=== PATIENT | male | born 1950 | race Caucasian/White ===

== ENCOUNTER 2022-11-11 10:27 | Outpatient (CLI) | payer MEDICARE, SELFPAY ==
[2022-11-11 17:20] LABS: Albumin* 3.9 g/dL (3.3-5.0); Chloride* 104 mmol/L (96-114); Sodium* 137 mmol/L (135-149)
[2022-11-11 17:21] LABS: Potassium* 4.6 mmol/L (3.6-5.1)
[2022-11-11 17:23] LABS: Alanine Aminotransferase* 39 U/L (4-50); Alkaline Phosphatase* 95 U/L (40-150); Aspartate Amino Transferase* 50 U/L (12-35); Blood Urea Nitrogen* 7 mg/dL (7-30); Calcium* 9.7 mg/dL (8.4-10.6); Carbon Dioxide* 26 mmol/L (20-32); Creatinine* 0.9 mg/dL (0.5-1.5); Estimated Glomerular Filt Rate 91 ml/min; Glucose* 96 mg/dL (60-115); Total Protein* 7.8 g/dL (6.0-8.3)
[2022-11-11 17:39] LABS: Bilirubin Total* 0.5 mg/dL (0.1-1.5)
[2022-11-11 18:12] LABS: Vitamin B12* 401 pg/mL (243-894)
== END 2022-11-11 10:28 | disposition home or self-care (01) ==
PROVIDERS: PCP Family Medicine; Visit Provider Family Medicine
DX: Z00.00 Encounter for general adult medical examination without abnormal findings (principal); I10 Essential (primary) hypertension; Z13.21 Encounter for screening for nutritional disorder; Z13.29 Encounter for screening for other suspected endocrine disorder; Z13.0 Encounter for screening for diseases of the blood and blood-forming organs and certain disorders involving the immune mechanism
CPT/HCPCS: 80053; 82607; 84443

== ENCOUNTER 2023-05-21 09:27 | Outpatient (CLI) | payer MEDICARE, SELFPAY | END 2023-05-21 09:28 | disposition home or self-care (01) | LOC: LONREF 09:29 | PROVIDERS: PCP Family Medicine; Visit Provider Family Medicine | DX: I10 Essential (primary) hypertension (principal); R60.9 Edema, unspecified | CPT/HCPCS: 80048 ==

== ENCOUNTER 2023-06-20 07:42 | Outpatient (CLI) | payer MEDICARE, SELFPAY | END 2023-06-20 07:43 | disposition home or self-care (01) | PROVIDERS: PCP Family Medicine; Visit Provider Family Medicine | DX: R60.9 Edema, unspecified (principal) | CPT/HCPCS: 93306 ==

== ENCOUNTER 2023-07-02 07:45 | Outpatient (CLI) | payer MEDICARE, SELFPAY ==
--- NOTE | 2023-07-02 08:00 | CRLHL7_ITS ---
For Patients: As a result of the Century Cures Act, medical imaging exams and procedure reports are released immediately into your electronic medical record. You may view this report before your referring provider. If you have questions, please contact your health care provider. INDICATION: Lung cancer screening. History of smoking. High risk patient with greater than 50 pack-year smoking history. TECHNIQUE: Low-dose lung cancer screening non-contrast CT chest. Dose reduction techniques were used. COMPARISON: 06/17/2018 FINDINGS: NODULES: None. LUNGS AND PLEURA: Emphysema. Biapical pleural parenchymal scarring. Focal fibrotic change in the posterior segment of the right upper lobe. Mild fibrosis within the posterior aspect of the right lower lobe with slight bronchiectasis. Mild scarring left lower lobe. No pleural effusion. MEDIASTINUM: No enlarged lymph nodes. Atherosclerotic changes. CORONARY ARTERY CALCIFICATION: Present. LIMITED UPPER ABDOMEN: Simple renal cysts. MUSCULOSKELETAL: No fracture. Degenerative changes. IMPRESSION: Negative for lung cancer screening purposes. LUNG-RADS CATEGORY: 2: Benign. RADIOLOGIST RECOMMENDATION: Continue annual screening with low-dose CT chest in 12 months. Please note that all CT scans at this facility use dose modulation, iterative reconstruction, and/or weight-based dosing when appropriate to reduce radiation dose to as low as reasonably achievable. Dictated by Neeraj Almanzar MD @ 07/02/2023 11:02:58 AM (Electronically Signed)
== END 2023-07-02 07:46 | disposition home or self-care (01) ==
PROVIDERS: PCP Family Medicine; Visit Provider Family Medicine
DX: Z12.2 Encounter for screening for malignant neoplasm of respiratory organs (principal); J44.9 Chronic obstructive pulmonary disease, unspecified; F17.211 Nicotine dependence, cigarettes, in remission; F17.220 Nicotine dependence, chewing tobacco, uncomplicated; R05.3 Chronic cough
CPT/HCPCS: 71271

== ENCOUNTER 2023-07-21 13:46 | Emergency (ER) | payer MEDICARE, SELFPAY ==
--- NOTE | 2023-07-21 14:14 | ED.NURSE ---
Patient left before being triaged. Security verified this information.
== END 2023-07-21 14:35 | disposition left against medical advice (07) ==
PROVIDERS: Emergency Provider Emergency Medicine Emergency Medical Services; PCP Family Medicine
DX: Z53.21 Procedure and treatment not carried out due to patient leaving prior to being seen by health care provider (principal)

== ENCOUNTER 2023-09-12 10:10 | Outpatient (CLI) | payer MEDICARE, SELFPAY | END 2023-09-12 10:11 | disposition home or self-care (01) | LOC: LONREF 10:11 | PROVIDERS: PCP Family Medicine; Visit Provider Family Medicine | DX: I10 Essential (primary) hypertension (principal); F10.10 Alcohol abuse, uncomplicated; L29.9 Pruritus, unspecified | CPT/HCPCS: 80053 ==

== ENCOUNTER 2023-12-08 10:49 | Emergency (ER) | payer MEDICARE, SELFPAY ==
[2023-12-08 11:19] VITALS: BP 119/77; PULSE 70; RESP 16; TEMP 36.5; O2SAT 97; BMI 29.4
--- NOTE | 2023-12-08 14:05 | ED.NURSE ---
Station Agent in waiting room asking for pt to come back to room. Pt not in waiting room. Waiting room bathroom checked, but no one in bathroom. Pt left without being seen and without signing a refusal of services.
--- NOTE | 2023-12-08 14:18 | W.ED.CHARTNO ---
ED Chart Note Chart Note Details Date: 12/08/23 Details: Patient left before being seen.
== END 2023-12-08 14:22 | disposition home or self-care (01) ==
LOC: ED 14:24
PROVIDERS: Emergency Provider Family Medicine; PCP Family Medicine
DX: Z53.21 Procedure and treatment not carried out due to patient leaving prior to being seen by health care provider (principal)

== ENCOUNTER 2025-01-03 20:57 | Outpatient (CLI) | payer MEDICARE, SELFPAY | END 2025-01-03 20:58 | disposition home or self-care (01) | LOC: AMB 01-04 15:51 | PROVIDERS: PCP Family Medicine; Visit Provider Family Medicine | DX: F10.129 Alcohol abuse with intoxication, unspecified (principal); R53.1 Weakness | CPT/HCPCS: A0998 ==

== ENCOUNTER 2025-06-23 12:49 | Emergency (ER) | payer MEDICARE, SELFPAY ==
--- OUTSIDE RECORDS SUMMARY | 2025-06-23 12:53 | XMS_ITS | Clinical Summary ---
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/01/2010 Unspecified examination 01/01/2010 Overview (01/01/2010): Physical: 11/2008 Cholesterol: 173 done 11/30/2008 LDL: 110 done 11/30/2008 Colonoscopy: 02/22/2008 Hypotestosteronemia 01/01/2010 Colon polyp 02/02/2008 Immunizations Immunization Administration Dates Next Due Influenza A (H1N1), Inactivated 08/04/2009 Pneumococcal Poly,23-Valent (Pneumovax) 09/16/20 05 Td (Age >=7 Years) 03/03/2001 Varicella Vaccine 03/03/2001 Family History Medical History Relation Name Comments Stroke Father Other Mother lung cancer Stroke Paternal Grandfather Other Paternal Grandmother cancer Relation Name Status Comments Father Mother (Age 73) Paternal Grandfather (Age 73) Paternal Grandmother (Age 85) Social History Tobacco Use Types Packs/Day Years Used Date Smoking Tobacco: Every Day Cigarettes Smokeless Tobacco: Never Alcohol Use Standard Drinks/Week Comments Yes 4.2 (1 standard drin k = 0.6 oz pure alcohol) significan history alcohol use but has cut down significantly per H&P 05/05/10/08 pack every day Sex and Gender Information Value Date Recorded Sex Assigned at Not on file 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 Gender Identity Not on file Sexual Orientation Not on file Obstetrics History Last Filed Vital Signs Vital Sign Reading Time Taken Comments Blood Pressure 141/89 02/02/2014 1:04 PM CDT Pulse 81 02/02/2014 1:04 PM CDT Temperature 36.4 C (97.5 F) 06/11/2012 10:30 AM CDT Respiratory Rate 16 06/11/2012 1:00 PM CDT Oxygen Saturation 96% 06/11/2012 1:00 PM CDT Inhaled Oxygen Concentration - - Weight 74.8 kg (165 lb) 06/09/2012 9:37 PM CDT Height 177.8 cm (5' 10) 06/09/2012 9:37 PM CDT Body Mass Index 23.68 06/09/2012 9:37 PM CDT Plan of Treatment Health Maintenance Due Date Last Done Comments Depression screening for age 12+ 1962 BMI (ht and wt on same day) for age 18+ 1968 Hepatitis C screening for ag e 18-79 1968 Zoster (shingles) series for age 50+ (1 of 2) 2000 Pneumococcal series for age 50+ (2 of 2 - PCV) 09/16/2006 09/16/2005 Tetanus booster 03/03/2011 03/03/2001 Lipids for age 45-75 11/20/2013 11/20/2008 Colonoscopy through age 75 02/21/2018 02/22/2008 COVID-19 vaccine series (3 - 2023- season) 2024 01/26/2021, 01/05/2021 RSV vaccine for adults or (1 - 1-dose 75+ series) 2025 Influenza Vaccine (#1) 2025 Hepatitis B series for 19+ Aged Out N o longer eligible based on patient's age to complete this topic Medical Devices Implanted Type Area [employer] Assistant Device Identifier Shelf Expiration Date Model / Serial / Lot Log [id number] - Janeen [id number] Lens Iol - 1 - Lens Iol 20.5 Wf [id number] Implanted:Qty: 1 on 05/14/2012 by Fabio Artis MD at [facility] [employer] [id number] # / [id number] / Log [id number] - Janeen [id number] Lens Iol - 1 - Lens Iol 20.5 Wf [id number]. 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
[2025-06-23 13:46] VITALS: BP 135/82; PULSE 87; RESP 18; TEMP 36.9; O2SAT 97; BMI 27.1
== END 2025-06-23 14:36 | disposition left against medical advice (07) ==
LOC: ED 14:35
PROVIDERS: Emergency Provider Family Medicine; PCP Family Medicine
DX: Z53.21 Procedure and treatment not carried out due to patient leaving prior to being seen by health care provider (principal)
CPT/HCPCS: 99281

== ENCOUNTER 2025-06-24 14:45 | Outpatient (CLI) | payer MEDICARE, SELFPAY | END 2025-06-24 14:46 | disposition home or self-care (01) | LOC: LKVREF 14:50 | PROVIDERS: PCP Family Medicine; Visit Provider Physician Assistant | DX: R06.02 Shortness of breath (principal) | CPT/HCPCS: 83880 ==

== ENCOUNTER 2025-06-29 14:45 | Outpatient (CLI) | payer MEDICARE, SELFPAY ==
--- NOTE | 2025-06-29 15:00 | CRLHL7_ITS ---
For Patients: As a result of the Century Cures Act, medical imaging exams and procedure reports are released immediately into your electronic medical record. You may view this report before your referring provider. If you have questions, please contact your health care provider. INDICATION: Leg pain and swelling. TECHNIQUE: Ultrasound venous duplex bilateral lower extremity. Compression venous exam was performed using arnold-scale, color Doppler, and spectral Doppler analysis. COMPARISON: None. FINDINGS: Deep veins: The bilateral common femoral, superficial femoral, deep femoral, popliteal, and posterior tibial veins are fully compressible and patent. Superficial veins: Greater saphenous vein is fully compressible. No popliteal cyst. IMPRESSION: : Unremarkable ultrasound of the bilateral lower extremity veins. No sign of venous thrombus. Dictated by Steven Springer MD @ 06/29/2025 3:44:16 PM (Electronically Signed)
== END 2025-06-29 14:46 | disposition home or self-care (01) ==
LOC: US 14:47
PROVIDERS: PCP Family Medicine; Visit Provider Family Medicine
DX: R60.1 Generalized edema (principal); M79.604 Pain in right leg; M79.605 Pain in left leg; R79.89 Other specified abnormal findings of blood chemistry
CPT/HCPCS: 80076; 84439; 84443; 93970

== ENCOUNTER 2025-07-07 08:29 | Outpatient (CLI) | payer MEDICARE, SELFPAY ==
--- NOTE | 2025-07-07 09:00 | CRLHL7_ITS ---
For Patients: As a result of the Century Cures Act, medical imaging exams and procedure reports are released immediately into your electronic medical record. You may view this report before your referring provider. If you have questions, please contact your health care provider. Indication: Abnormal weight loss Technique: CT Abdomen/Pelvis 92CC ISOVUE 370 intravenous contrast Please note that all CT scans at this facility use dose modulation, iterative reconstruction, and/or weight-based dosing when appropriate to reduce radiation dose to as low as reasonably achievable. Comparison: 04/05/2018 Findings: Scarring in both lung bases. No pleural effusion. Fatty liver. Small layering densities in the gallbladder. No biliary obstruction. Spleen is normal. No hiatal hernia. No adrenal nodule. Multiple water attenuation renal cysts are unchanged. No hydronephrosis. Nonobstructing stone lower pole right kidney measures 6.4 millimeters. Pancreatic parenchyma unremarkable. Prostate is heterogeneous with calcifications and results in some mass effect upon the inferior bladder. No bladder wall thickening. Sigmoid diverticulosis. No diverticulitis. No bowel obstruction or free air. No free fluid. No adenopathy. Normal appendix. Abdominal aortic aneurysm is increased in size and measures 6.1 x 5.5 cm. This extends over a length 6.2 cm and is located below the renal arteries. Old bilateral femoral neck fractures noted with intact hardware. No acute fracture. Small umbilical hernia is incidentally noted containing omental fat. Impression: Distal abdominal aortic aneurysm measures 6.1 x 5.5 cm in transverse dimensions and extends over a length of 6.2 cm. Vascular referral recommended. Hepatic steatosis. Cholelithiasis. Multiple simple renal cysts. Nonobstructing right renal stone. Sigmoid diverticulosis. Please note that all CT scans at this facility use dose modulation, iterative reconstruction, and/or weight-based dosing when appropriate to reduce radiation dose to as low as reasonably achievable. Dictated by Neeraj Almanzar MD @ 07/07/2025 12:12:51 PM (Electronically Signed)
[2025-07-07 09:02] LABS: Creatinine* 1.1 mg/dL (0.5-1.5); Estimated Glomerular Filt Rate 70 ml/min
== END 2025-07-07 08:30 | disposition home or self-care (01) ==
LOC: CT 08:29
PROVIDERS: PCP Family Medicine; Visit Provider Family Medicine
DX: R63.4 Abnormal weight loss (principal); I71.40 Abdominal aortic aneurysm, without rupture, unspecified; K76.0 Fatty (change of) liver, not elsewhere classified; K80.20 Calculus of gallbladder without cholecystitis without obstruction; N28.1 Cyst of kidney, acquired; K57.30 Diverticulosis of large intestine without perforation or abscess without bleeding
CPT/HCPCS: 36415; 74177; 82565; Q9967

== ENCOUNTER 2025-08-18 22:32 | Outpatient (CLI) | payer MEDICARE, SELFPAY | END 2025-08-18 22:33 | disposition home or self-care (01) | LOC: AMB 08-21 00:08 | PROVIDERS: PCP Family Medicine; Visit Provider Internal Medicine | DX: R42 Dizziness and giddiness (principal) | CPT/HCPCS: A0998 ==